=== PATIENT | male | born 1985 | race Caucasian/White ===

== ENCOUNTER 2019-01-09 03:15 | Inpatient (IN) | payer OTHER ==
[~2019-01-09] VITALS: Ht 182.9 cm; Wt 150.6 kg
[2019-01-09 03:18] VITALS: BP 127/83
[2019-01-09] MEDS ORDERED: DEXEDRINE15 MG PO (03:29)
[2019-01-09 04:23] LABS: HEMATOCRIT 46.4 % (42.0-52.0); HEMOGLOBIN 15.5 gm/dL (14.0-18.0); MCH 28.4 pg (26.0-34.0); MCHC 33.4 g/dL (28.0-37.0); MCV 84.9 fL (80.0-100.0); PLATELET COUNT 158 thou/uL (150-400); RBC 5.46 mil/uL (4.50-6.00); RDW 14.8 % (10.5-14.5); WBC 7.3 thou/uL (4.0-11.0)
[2019-01-09 04:24] LABS: ANION GAP 11 mmol/L (7-16); BUN 13 mg/dL (7-18); CALCIUM 8.9 mg/dL (8.5-10.1); CHLORIDE 100 mmol/L (98-107); CO2 23 mmol/L (21-32); GLUCOSE 114 mg/dL (74-106); POTASSIUM 3.9 mmol/L (3.5-5.1); SODIUM 134 mmol/L (136-145)
[2019-01-09 04:27] LABS: APTT 28.4 Seconds (24.5-32.8); D-DIMER 1.21 ug/mLFEU (0.19-0.50); PROTIME 10.8 Seconds (9.3-11.4)
[2019-01-09 04:35] LABS: ALBUMIN 3.1 g/dL (3.4-5.0); MAGNESIUM 1.9 mg/dL (1.8-2.4); SGOT 53 U/L (15-37); SGPT 79 U/L (30-65); TOTAL BILIRUBIN 0.5 mg/dL (<0.1-1.0); TOTAL PROTEIN 7.3 g/dL (6.4-8.2); TROPONIN-I <0.06 ng/mL (<0.06)
[2019-01-09 05:30] LABS: AMP/METHAMP POSITIVE (Negative); BARBITURATES Negative (Negative); BENZODIAZEPINES Negative (Negative); COCAINE Negative (Negative); METHADONE Negative (Negative); OPIATES POSITIVE (Negative); PCP Negative (Negative)
[2019-01-09 06:05] LABS: ABSOLUTE NEUTROPHILS 3.3 thou/uL (1.4-8.2); PLATELET ESTIMATE NORMAL
[2019-01-09 06:31] VITALS: BP 143/73
[2019-01-09 06:50] VITALS: BP 107/56
[2019-01-09 07:23] VITALS: BP 125/68
--- NOTE | 2019-01-09 09:02 | EKG ---
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
--- NOTE | 2019-01-09 10:13 | EXE ---
[facility] [address] [place] [address] STRESS ECHOCARDIOGRAM Name: ASHOK RICHARDSON II Room #: 200-I ADM IN M.R.#: [id number] Admission: 01/09/19 Attend Phys: Rob Crowder, Discharge: Date of : 83 Report #: [id number] THIS REPORT FOR: //name// APPROVED REPORT Study performed: 01/09/2019 08:23:04 Exam: Stress Echocardiogram Indication: Chest pain Patient Location: Echo lab Stress Nurse: Lizzette Caldwell RN Room #: 200 Status: routine Ht: 6 ft 0 in Rhythm: Tachycardia Medical History Medical History: Obesity Procedure The patient underwent an Exercise Stress Test using the Karl Protocol. Blood pressure, heart rate, and EKG were monitored. An Echocardiogram was performed by emergency medical technician/driver in four stages in quad fashion. At peak stress, four selected images were obtained and placed side by side with resting images for comparison. Echo Enhancing Agent Indication: Endocardial border delineation Agent(s) / Amount(s) Used: Optison 5 cc Stress Test Details Stress Test: Exercise stress testing was performed using a Karl protocol. HR Resting HR: 105 bpm Max Heart Rate (APMHR): 186 bpm Max HR Achieved: 184 bpm Target HR (85% APMHR): 158 bpm % of APMHR: 98 Recovery HR: 110 bpm HR response to stress: Normal HR response to stress BP Resting BP: 130/85 mmHg Max BP: 142/90 mmHg [facility] [address] [place] [address] STRESS ECHOCARDIOGRAM Name: ASHOK RICHARDSON Room #: 200-I [facility] IN .R.#: [id number] Admission: 01/09/19 Attend Phys: Rob Crowder, Discharge: Date of : 83 Report #: [id number] Recovery BP: 130/70 mmHg BP response to stress: Normal blood pressure response to stress. ECG Resting ECG: Sinus Rhythm Stress ECG: Sinus Rhythm ST Change: Normal Maximum ST Deviation: 0 mm Arrhythmia: None Recovery ECG: Sinus Rhythm Recovery ST Change: Normal Recovery ST Deviation: 0 mm Recovery Arrhythmia: None Clinical Reason for Termination: Maximal effort Stress Symptoms: Dyspnea, right knee pain Exercise duration: 6 min 46 sec Highest Stage Achieved: Stage 3: 3.4 mph at 14% grade. Exercise capacity: 8.70 METs Angina Score: None Stress ECG Conclusion ECG: Non-ischemic Clinical: Non-ischemic Whelan Treadmill Score is 6.0 which is Low risk. Pre-Stress Echo The resting Echocardiogram showed normal left ventricular contractility with an estimated Ejection Fraction of about 55-60%. The resting echocardiogram demonstrated normal wall motion in all wall segments. Post-Stress Echo The stress Echocardiogram showed normal left ventricular contractility with an estimated Ejection Fraction of about 65-70%. Compared to rest, there were no stress-induced wall motion abnormalities. Conclusion Clinical Response: Non-ischemic Exercise Capacity: Average Stress ECG Response: Non-ischemic Stress Echo Images: Non-ischemic The left ventricle is normal in size and wall thickness in both the rest and stress images. [facility] [address] [place] [address] STRESS ECHOCARDIOGRAM Name: ASHOK RICHARDSON RAMIRO Room #: 200-I ADM IN M.R.#: [id number] Admission: 01/09/19 Attend Phys: Rob Crowder, Discharge: Date of : 83 Report #: [id number] Normal stress echocardiogram with maximal exercise stress. Other Information Study Quality: Technically Difficult Technically limited study due to body habitus. <Conclusion> The left ventricle is normal in size and wall thickness in both the rest and stress images. Normal stress echocardiogram with maximal exercise stress. <ELECTRONICALLY SIGNED> By: Saulo Brown MD, FACC 01/09/19 1013 12 12 Saulo Brown MD, FACC /INF
[2019-01-09 14:05] VITALS: BP 125/68
--- NOTE | 2019-01-09 14:19 | NUR ---
NEW ADMIT FROM ED FOR CHEST PAIN, ALERT X4, DENIES PAIN AT TIME OF ADMISSION TO FLOOR. UP AB COLEEN CT AND US COMPLETE NO ACUTE GB. ADMISSION ASSESMENT AND HISTORY COMPLETE. DC HOME TO SELF CARE POST DIAGNOSTIC RESULTS.
== END 2019-01-09 14:20 | disposition home or self-care (01) | DRG 313 ==
LOC: ER 03:15 → EROBS 05:58 → 2N 05:58
PROVIDERS: Emergency Medicine; ADMIT Family Medicine
DX: R07.9 Chest pain, unspecified (principal); Z68.42 Body mass index [BMI] 45.0-49.9, adult; G47.33 Obstructive sleep apnea (adult) (pediatric); E66.01 Morbid (severe) obesity due to excess calories; Z88.8 Allergy status to other drugs, medicaments and biological substances
CPT/HCPCS: 10081

== ENCOUNTER 2019-01-16 14:50 | Emergency (ER) | payer OTHER ==
[~2019-01-16] VITALS: Ht 185.4 cm; Wt 149.7 kg
[~2019-01-16 14:50] MED LIST: DEXEDRINE15 MG PO
[2019-01-16 15:48] LABS: HEMATOCRIT 42.7 % (42.0-52.0); MCH 27.9 pg (26.0-34.0); MCHC 32.9 g/dL (28.0-37.0); PLATELET COUNT 209 thou/uL (150-400); RBC 5.02 mil/uL (4.50-6.00); RDW 14.9 % (10.5-14.5); WBC 10.9 thou/uL (4.0-11.0)
[2019-01-16 15:52] LABS: ANION GAP 4 mmol/L (7-16); BUN 9 mg/dL (7-18); CALCIUM 8.4 mg/dL (8.5-10.1); CHLORIDE 98 mmol/L (98-107); CO2 28 mmol/L (21-32); CREATININE 1.2 mg/dL (0.7-1.3); GLUCOSE 104 mg/dL (74-106); POTASSIUM 4.2 mmol/L (3.5-5.1); SODIUM 130 mmol/L (136-145)
[2019-01-16 16:01] LABS: TROPONIN-I <0.06 ng/mL (<0.06)
[2019-01-16 16:41] LABS: URINE BILIRUBIN NEGATIVE (Negative); URINE BLOOD NEGATIVE (Negative); URINE CLARITY CLEAR; URINE COLOR YELLOW; URINE GLUCOSE-RANDOM* NEGATIVE (Negative); URINE KETONES NEGATIVE (Negative); URINE LEUKOCYTES-REFLEX NEGATIVE (Negative); URINE NITRITE-REFLEX NEGATIVE (Negative); URINE PROTEIN (DIPSTICK) NEGATIVE (Negative); URINE SPECIFIC GRAVITY <= 1.005 (1.005-1.035)
[2019-01-16 16:58] LABS: ATYPICAL LYMPHS 12 %
[2019-01-16 16:59] LABS: ANISOCYTOSIS 1+
[2019-01-16 17:28] VITALS: BP 111/63
--- NOTE | 2019-01-17 13:00 | EKG ---
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 : 1985 Requested By: Emily Loco Order Number: [id number] MD: Saulo Brown Measurements Intervals [place] Rate: 113 P: 24 MD: 153 QRS: 10 QRSD: 91 T: 27 QT: 324 QTc: 445 Interpretive Statements Sinus tachycardia Otherwise normal tracing Compared to ECG 01/09/2019 03:32:32 No significant change was found Electronically Signed On 01-17-2019 12:59:46 CIRCULAR SHEAR OPERATOR by Saulo Brown [email or web address] <ELECTRONICALLY SIGNED> By: Saulo Brown MD, [facility] 01/17/19 1259 1512 1512 Saulo Brown MD, FACC /EPI
== END 2019-01-16 17:29 | disposition home or self-care (01) ==
LOC: ER 14:50
PROVIDERS: Emergency Medicine
DX: E87.1 Hypo-osmolality and hyponatremia (principal); R53.83 Other fatigue; F90.9 Attention-deficit hyperactivity disorder, unspecified type; Z88.6 Allergy status to analgesic agent; Z88.8 Allergy status to other drugs, medicaments and biological substances